=== PATIENT | male | born 1985 | race African-American/Black ===

== ENCOUNTER 2016-11-11 17:55 | Emergency (ER) | payer OTHER ==
[~2016-11-11] VITALS: Ht 180.3 cm; Wt 190.0 kg
[2016-11-11 18:12] VITALS: BP 155/92
== END 2016-11-11 18:56 | disposition home or self-care (01) ==
LOC: ER 18:12
DX: M77.9 Enthesopathy, unspecified (principal); F17.200 Nicotine dependence, unspecified, uncomplicated; F12.10 Cannabis abuse, uncomplicated; E66.01 Morbid (severe) obesity due to excess calories; Z68.43 Body mass index [BMI] 50.0-59.9, adult
CPT/HCPCS: 99282

== ENCOUNTER 2016-12-26 01:53 | Emergency (ER) | payer OTHER ==
[~2016-12-26] VITALS: Ht 180.3 cm; Wt 181.0 kg
[2016-12-26 02:03] VITALS: BP 170/93
== END 2016-12-26 07:57 | disposition home or self-care (01) ==
LOC: ER 07:52
DX: S30.0XXA Contusion of lower back and pelvis, initial encounter (principal); X58.XXXA Exposure to other specified factors, initial encounter; Y92.018 Other place in single-family (private) house as the place of occurrence of the external cause
CPT/HCPCS: 99283

== ENCOUNTER 2017-02-27 08:23 | Emergency (ER) | payer OTHER ==
[~2017-02-27] VITALS: Ht 180.3 cm; Wt 150.0 kg
[2017-02-27] MEDS ORDERED: KETOROLAC 30MG/ML VIAL IM ONE (15:45)
[2017-02-27 16:09] VITALS: BP 145/84
== END 2017-02-27 16:44 | disposition home or self-care (01) ==
LOC: ER 08:25
DX: M54.5 Low back pain (principal)
CPT/HCPCS: 96372; 99283; J1885

== ENCOUNTER 2019-09-08 22:01 | Emergency (ER) | payer OTHER ==
[~2019-09-08] VITALS: Ht 182.9 cm; Wt 220.0 kg
[2019-09-08] MEDS ORDERED: ACETAMINOPHEN 325MG TABLET PO STA (22:50)
[2019-09-08] MEDS ORDERED: SODIUM CHLORIDE 0.9% 1000ML BAG (SEPSIS BOLUS) IV ONE (23:00)
[2019-09-08 23:41] LABS: HEMATOCRIT. 41.2 % (42.0-52.0); HEMOGLOBIN. 13.6 g/dL (14.0-18.0); MEAN CORPUSCULAR HEMOGLOBIN 28.3 pg (28.0-32.0); MEAN CORPUSCULAR VOLUME 85.9 fL (80.0-94.0); MEAN PLATELET VOLUME 9.3 fl (7.4-10.4); PLATELET 289 x1000/uL (130-400); RED CELL DISTRIBUTION WIDTH 13.4 % (11.6-14.6)
[2019-09-08 23:52] LABS: CHLORIDE 92 mEq/L (98-107)
[2019-09-09] MEDS ORDERED: VANCOMYCIN 1 G PREMIX 200 ML IV ONE
[2019-09-09] MEDS ORDERED: PIPERACILLIN/TAZ 3.375G PREMIX 50 ML IV ONE
[2019-09-09] MEDS ORDERED: POTASSIUM CHLORIDE 20MEQ TABLET SR PO ONE
[2019-09-09] MEDS ORDERED: ACETAMINOPHEN 325MG TABLET PO ONE (01:15)
[2019-09-09 01:33] LABS: CLARITY URINE CLEAR (CLEAR); COLOR URINE YELLOW (YELLOW); KETONES URINE 1+ (NEGATIVE); LEUKOCYTE ESTERASE URINE 1+ (NEGATIVE); NITRITE URINE NEGATIVE (NEGATIVE); OCCULT BLOOD URINE NEGATIVE (NEGATIVE); PH URINE 6.5 (4.5-8.0); PROTEIN URINE 1+ (NEGATIVE)
[2019-09-09 03:23] LABS: ATYPICAL LYMPHOCYTES 1
[2019-09-09 03:24] LABS: PLATELET ESTIMATE NORMAL
[2019-09-09 04:11] VITALS: BP 146/89
== END 2019-09-09 05:07 | disposition short-term general hospital (02) ==
LOC: ER 22:01
DX: A41.9 Sepsis, unspecified organism (principal); J18.9 Pneumonia, unspecified organism; E11.9 Type 2 diabetes mellitus without complications
CPT/HCPCS: 36415; 71045; 80053; 81003; 82962; 83605; 83880; 84484; 85025; 87040; 87804; 93005; 96365; 96366; 96368; 99291; J2543; J3370; J7030; Z7610